=== PATIENT | female | born 1995 ===

== ENCOUNTER → 2019-01-19 | Outpatient (CLI) | payer OTHER ==
[2019-01-22 03:08] LABS: CHLAMYDIA TRACHOMATIS, NAA Negative (Negative); NEISSERIA GONORRHOEAE, NAA Negative (Negative)
== END ==
LOC: LAB SHORT 14:30 → LAB 14:30
PROVIDERS: Registered Nurse Community Health
DX: Z12.4 Encounter for screening for malignant neoplasm of cervix (principal); Z11.3 Encounter for screening for infections with a predominantly sexual mode of transmission; N89.8 Other specified noninflammatory disorders of vagina
CPT/HCPCS: 87070; 87205; 87491; 87591; G0123

== ENCOUNTER → 2019-07-22 | Outpatient (CLI) | payer OTHER | LOC: LAB 17:53 → LAB SHORT 17:53 → LAB FUT 07-21 15:20 | DX: Z34.92 Encounter for supervision of normal pregnancy, unspecified, second trimester (principal) | CPT/HCPCS: 87081; 87653 ==

== ENCOUNTER 2019-08-17 14:15 | Inpatient (IN) | payer OTHER ==
[~2019-08-17] VITALS: Ht 170.2 cm; Wt 74.0 kg
[2019-08-17] MEDS ORDERED: PRENATA CHEWAB1 EACH PO (15:05)
[2019-08-17 15:39] LABS: BASOPHILS ABSOLUTE AUTO 0.05 K/mm3 (0.00-0.23); BASOPHILS PERCENT AUTO 0 % (0-2); EOSINOPHILS ABSOLUTE AUTO 0.09 K/mm3 (0.00-0.68); EOSINOPHILS PERCENT AUTO 1 % (0-6); Hematocrit 40.1 % (33.0-51.0); Hemoglobin 13.8 g/dL (11.5-16.0); IMMATURE GRAN ABSOLUTE AUTO 0.19 K/mm3 (0.00-0.10); IMMATURE GRAN PERCENT AUTO 1 % (0-1); LYMPHOCYTES ABSOLUTE AUTO 2.37 K/mm3 (0.84-5.20); LYMPHOCYTES PERCENT AUTO 16 % (21-46); MONOCYTES ABSOLUTE AUTO 0.88 K/mm3 (0.16-1.47); MONOCYTES PERCENT AUTO 6 % (4-13); Mean Corpuscular HGB 32.4 pg (26.0-34.0); Mean Corpuscular HGB Conc 34.4 g/dL (31.5-36.5); Mean Corpuscular Volume 94 fL (80-100); Mean Platelet Volume 10.7 fL (9.1-12.4); NEUTROPHILS ABSOLUTE AUTO 10.95 K/mm3 (1.96-9.15); NEUTROPHILS PERCENT AUTO 75 % (41-73); Platelet Count 295 K/mm3 (150-400); RDW Coefficient Variation 12.7 % (11.7-14.2); Red Blood Cell Count 4.26 M/mm3 (3.80-5.20); White Blood Cell Count 14.53 K/mm3 (4.00-11.30)
[2019-08-18 04:30] LABS: BASOPHILS ABSOLUTE AUTO 0.04 K/mm3 (0.00-0.23); BASOPHILS PERCENT AUTO 0 % (0-2); EOSINOPHILS PERCENT AUTO 0 % (0-6); Hematocrit 35.6 % (33.0-51.0); Hemoglobin 12.3 g/dL (11.5-16.0); IMMATURE GRAN PERCENT AUTO 1 % (0-1); LYMPHOCYTES ABSOLUTE AUTO 1.62 K/mm3 (0.84-5.20); LYMPHOCYTES PERCENT AUTO 7 % (21-46); MONOCYTES ABSOLUTE AUTO 1.57 K/mm3 (0.16-1.47); MONOCYTES PERCENT AUTO 7 % (4-13); Mean Corpuscular HGB 32.5 pg (26.0-34.0); Mean Corpuscular HGB Conc 34.6 g/dL (31.5-36.5); Mean Corpuscular Volume 94 fL (80-100); Mean Platelet Volume 10.7 fL (9.1-12.4); NEUTROPHILS ABSOLUTE AUTO 19.47 K/mm3 (1.96-9.15); NEUTROPHILS PERCENT AUTO 85 % (41-73); Platelet Count 239 K/mm3 (150-400); RDW Coefficient Variation 12.8 % (11.7-14.2); RDW Standard Deviation 43.7 fL (35.1-46.3); Red Blood Cell Count 3.79 M/mm3 (3.80-5.20)
--- NOTE | 2019-08-18 09:53 | NUR ---
RN ROUNDED TO HELP WITH . PT REPORTS NB IS LATCHING WELL. NB NOT INTERESTED IN AT THIS TIME. INSTRUCTED ON WIDENING LATCH, CORRECT POSITIONING AND NIPPLE SHAPE AFTER FEEDS. INSTRUCT/REVIEWED BOOKLET AND BROCHURE ON WHAT TO EXPECT IN THE FIRST WEEK WITH AND CHANGES IN NB. PT VERBALIZES UNDERSTANDING AND DENIES ANY FURTHER QUESTIONS OR CONCNERS.
[2019-08-18] MEDS ORDERED: IBUP800 PO (11:11)
--- NOTE | 2019-08-18 22:01 | NUR ---
DC SUMMARY INSTRUCTIONS GIVEN, W/ NO QUESTIONS. PT CARING FOR SELF AND NB APPROPRIATLY. PAIN CONTROLLED W/ ORAL MEDICATION. BLEEDING AND VS WNL. PPFU FRIDAY 1300. BF WELL AT THIS TIME. PT FINISHING PACKING AND WILL AMBULATE OFF UNIT W/ NB AND .
== END 2019-08-18 22:15 | disposition home or self-care (01) | DRG 807 ==
LOC: OBS 14:15 → BC 14:16 → OBS 14:45 → BC 14:47
PROVIDERS: ADMIT Registered Nurse Community Health
PROC: 10E0XZZ Delivery of Products of Conception, External Approach (ICD-10-PCS; principal; 2019-08-17)
PROC: 10907ZC Drainage of Amniotic Fluid, Therapeutic from Products of Conception, Via Natural or Artificial Opening (ICD-10-PCS; 2019-08-17)
PROC: 4A1HXCZ Monitoring of Products of Conception, Cardiac Rate, External Approach (ICD-10-PCS; 2019-08-17)
PROC: 6A550ZT Pheresis of Cord Blood Stem Cells, Single (ICD-10-PCS; 2019-08-17)
PROC: 0UQGXZZ Repair Vagina, External Approach (ICD-10-PCS; 2019-08-17)
DX: O71.4 Obstetric high vaginal laceration alone (principal); Z37.0 Single live birth; Z3A.40 40 weeks gestation of pregnancy; O69.81X0 Labor and delivery complicated by cord around neck, without compression, not applicable or unspecified
CPT/HCPCS: 36415; 85025; J1885; J2590; J7120